=== PATIENT | female | born 1965 | race African-American/Black ===

== ENCOUNTER 2023-11-11 11:13 | Emergency (ER) | payer OTHER, SELFPAY ==
--- NOTE | ~2023-11-11 | CT_ITS ---
EXAMINATION: CT ABDOMEN AND PELVIS WITHOUT CONTRAST CLINICAL INFORMATION: Epigastric and right lower quadrant pain COMPARISON: None available. TECHNIQUE: Multidetector volumetric imaging was performed from the superior aspect of the liver through the pubic symphysis. Sagittal and coronal reformatted images were obtained on the technologist's workstation. This CT examination was performed using dose optimization techniques as appropriate, variously including the following: *Automated exposure control *Adjustment of mA and/or kV according to patient size (this includes techniques or standardized protocols for targeted exams where dose is matched to indication/reason for exam; i.e. extremities or head) *Use of iterative reconstruction technique DLP: 799 mGy-cm FINDINGS: LUNG BASES: Minimal patchy infiltrate or atelectasis is evident in the right posterior costophrenic sulcus. LIVER, GALLBLADDER, AND BILIARY TREE: The liver is normal in size, shape, and attenuation. No focal hepatic lesion or biliary ductal dilatation is present. The gallbladder is surgically absent. PANCREAS: Unremarkable. SPLEEN: Unremarkable. ADRENAL GLANDS: Unremarkable. KIDNEYS AND URETERS: The kidneys are normal in size, shape, and attenuation. No hydronephrosis, hydroureter, or calculi seen. No perinephric stranding. BLADDER: Unremarkable. GASTROINTESTINAL TRACT: The small and large bowel are unremarkable. The appendix is unremarkable. ABDOMINAL WALL: No significant hernia is appreciated. LYMPH NODES: Normal. VASCULAR: Unremarkable. PELVIC VISCERA: Unremarkable. OSSEOUS STRUCTURES: Unremarkable. CT/CT abdomen pelvis wo IV con IMPRESSION: No acute findings in the abdomen or pelvis. Fleischner guidelines were followed.
--- NOTE | ~2023-11-11 | XR_ITS ---
EXAMINATION: XR CHEST 2 VIEW CLINICAL INFORMATION: Chest pain COMPARISON: None TECHNIQUE: PA and lateral views of the chest obtained. FINDINGS: The lungs are clear. There are no pleural effusions. The cardiomediastinal silhouette is normal. XR/XR chest 2V IMPRESSION: No acute cardiopulmonary disease.
[2023-11-11 11:31] VITALS: BP 153/78; PULSE 74; RESP 16; TEMP 36.4; O2SAT 99; BMI 41.4
--- NOTE | 2023-11-11 11:32 | ED.GENADULT ---
HPI - General Adult General Chief complaint: Upper Respiratory Symptoms Stated complaint: chest pain fever coughing Time Seen by Provider: 11/11/23 12:38 Source: patient Mode of arrival: ambulatory Limitations: no limitations History of Present Illness HPI narrative: 58 year old female with no significant pmhx presents to the ED today for evaluation of chest and abdominal pain x5 days. She reports an episode of acid reflux 5 days ago for which she took OTC omeprazole. After this episode, she began having worsening intermittent substernal chest pain. She has been taking omeprazole, Tylenol, ibuprofen without relief of symptoms. Additionally she endorses discomfort to her right lower quadrant, subjective fevers, and cough since onset of chest pain. Admits to one episode of coughing earlier today in which her sputum had a streak of blood. She denies any known medical conditions. She does not take medications on a daily basis. denies known sick contacts. Daughter at bedside states that she arrived to the [facility] from [facility] back in August (2 months ago). Patient denies known tick or insect bites. Denies chills, sore throat, sputum production, N/V, sob, dyspnea, LE pain/swelling. Related Data Previous Rx's Medication Instructions Recorded pantoprazole 20 mg tablet,delayed 20 mg PO DAILY 30 days #30 tabs 11/11/23 release (Protonix) Allergies Allergy/AdvReac Type Severity Reaction Status Date / Time No Known Allergies Allergy Verified 11/11/23 11:35 Review of Systems Review of Systems: Constitutional: No fever, chills, fatigue, night sweats, weight changes ENT/Mouth: No ear pain, hearing loss, nasal congestion, sinus pain, rhinorrhea, sore throat Eyes: No eye pain, swelling, redness, vision changes, discharge Cardio: No palpitations, LUND, orthopnea, peripheral edema, +chest pain Pulm: No SOB, +cough, No sputum, wheezing, dyspnea, hemoptysis GI: No nausea, vomiting, hematemesis, diarrhea, constipation, hematochezia, melena, +abdominal pain : No irregular bleeding, dysuria, frequency, urgency, hesitancy, hematuria, flank pain, urinary flow changes, urinary incontinence or retention MSK: No back pain, neck pain, joint pain, myalgias Skin: No lesions, rashes Neuro: No weakness, numbness, paresthesias, LOC, dizziness, headache Psych: No anxiety/panic, depression, SI/HI, AH/VH All other systems reviewed and are negative. [facility] Past Medical History Attestation statement: The following information was validated with the patient. Source: old records reviewed and nursing notes reviewed Social History Social History Advance Directives: No Advance Directives Information Provided: No Physical Exam ED Vital Signs: Vital Signs - 24 hr 11/11/23 11:31 Temperature 97.5 F Pulse Rate 74 Respiratory Rate 16 Blood Pressure 153/78 H Pulse Oximetry 99 Oxygen Delivery Method Room Air BMI result Body Mass Index 41.4 Hypertensive, vitals otherwise WNL. Const General: cooperative, healthy appearing, comfortable and no acute distress Orientation/consciousness: patient oriented x3 Limitations: no limitations HENMT Head: Yes normal to inspection, Yes No palpable skull fracture present, Yes normocephalic and Yes atraumatic Ears: hearing grossly normal bilaterally, external ears normal, TM's normal bilaterally, EAC's normal, mastoids normal and no periauricular adenopathy Eyes General: appearance normal, both eyes and all related structures Conjunctivae: conjunctivae normal Sclerae: sclerae normal Pupils: Equal, round and reactive pupils present Neck Neck: Yes normal visual inspection, Yes full ROM, Yes no lymphadenopathy and Yes no JVD Chest Chest palpation & inspection: normal inspection of the chest, normal palpation of entire chest wall, no crepitus and no tenderness Resp Effort & Inspection: normal respiratory effort and able to speak in complete sentences Auscultation: clear to auscultation bilaterally Cardio Rate: regular rate Rhythm: regular rhythm Peripheral pulses: Peripheral pulses 2+ throughout GI Other: + obese abdomen, soft, nondistended, tender to palpation of the epigastric region and right lower quadrant without rebound or guarding. Normoactive bowel sounds x4. No CVAT bilaterally. Inspection: Yes normal to inspection General: Yes no CVA tenderness Back/Spine/Pelvis Other: No midline spinous tenderness or step off deformity. No paraspinal muscle tenderness. Back: no CVA tenderness Skin General skin exam: no rashes or lesions noted Neuro General: patient oriented x3 and gait normal Cranial nerves: Yes Equal, round and reactive pupils present Extrem General: Yes normal to inspection, Yes capillary refill normal and Yes no calf tenderness Course Course Course Narrative: RME- 58 year old female presents for evaluation of cough, fevers, body aches and chest pain for the last 3 days. Plan for viral swabs and EKG Reevaluation(s) Reevaluation #1: 1300-- Patient tested negative for influenza, RSV, COVID. CXR unremarkable. EKG showing normal sinus rhythm with a rate of 68 beats per minute, QT 368, QTC 391, no acute ischemic changes or ST elevations. Lower suspicion for ACS however will obtain troponin. > tender to palpation over the epigastric region and RLQ > will obtain basic labs/ lipase and ct abd/pelvis to rule out intra-abdominal pathology. 1457-- CBC without leukocytosis or anemia. No left shift. Chemistry without acute electrolyte abnormality requiring intervention. Troponin undetectable. Heart score 1. Low suspicion for ACS. UA without infection or blood. CT abdomen/pelvis unremarkable. Ddimer 217 which is within the normal range. Given flight was 2 months ago and symptoms began this week, low suspicion for PE. Patient's symptoms may be consistent with GERD. Discussed all work up results with patient and patient's daughter. > will send Protonix to pharmacy to treat GERD. Referral has been provided to new PCP. Patient has remained stable throughout ED visit today. Discussed worrisome signs and symptoms and when to return to the ED. All questions answered at this time. Patient is agreeable with disposition and stable for discharge. Medications Administered Discontinued Medications Generic Name Dose Route Start Last Admin Trade Name Freq PRN Reason Stop Dose Admin Acetaminophen 650 mg 11/11/23 13:00 11/11/23 13:37 Acetaminophen 325 Mg Tablet PO 11/11/23 13:01 650 mg ONCE ONE Administration Medical Decision Making Medical Decision Making [facility] Narrative: 58 year old female with no significant pmhx presents to the ED today for evaluation of chest and abdominal pain x5 days. Vital signs stable. Patient is nontoxic appearing and in NAD. obese abdomen, soft, nondistended, tender to palpation of the epigastric region and right lower quadrant without rebound or guarding. Normoactive bowel sounds x4. No CVAT bilaterally. Differential includes viral syndrome, GERD, gastritis, ACS, arrhythmia Plan for viral swabs, ekg, labs, cxr, imaging. Differential Diagnosis Differential Diagnoses: The differential diagnosis associated with the presentation includes As above Admission/Observation Not indicated Lab Data [facility] Lab Attestation statement: I reviewed the patient's lab results. As above 11/11/23 13:10 11/11/23 13:10 Labs: Lab Results 11/11/23 11/11/23 11/11/23 Range/Units 11:43 13:10 13:16 WBC 8.0 (4.8-10.8) X10*3/uL RBC 4.67 (4.20-5.50) X10*6/uL Hgb 12.1 (12.0-16.0) g/dl Hct 38.1 (37.0-47.0) % MCV 81.6 (80.0-98.0) fL MCH 25.9 L (27.0-33.0) pg MCHC 31.8 (31.0-35.0) g/dl RDW 13.9 (11.0-16.0) % Plt Count 359 (160-400) X10*3/uL MPV 9.4 (9.4-12.3) fL Immature Gran % (Auto) 0.1 (0.0-0.4) % Neut % (Auto) 48.4 (45-73) % Lymph % (Auto) 40.9 H (20-40) % Wilcox % (Auto) 9.0 (2-11) % Eos % (Auto) 1.2 (0-4) % Baso % (Auto) 0.4 (0-2) % Lymph # (Auto) 3.3 (1.2-4.9) X10*3/uL Wilcox # (Auto) 0.7 (0.1-1.2) X10*3/uL Eos # (Auto) 0.1 (0.0-0.4) X10*3/uL Baso # (Auto) 0.0 (0.0-0.2) X10*3/uL Abs Immat Gran (auto) 0.01 (0.00-0.03) X10*3/uL Absolute Neuts (auto) 3.9 (2.0-8.3) x10*3/uL Absolute Nucleated RBC 0.000 (0.0-0.012) X10*3/uL Nucleated RBC % (auto) 0.0 (0.0-0.2) /100WBC PT 11.2 (11.1-13.3) SEC INR 0.9 (0.9-1.1) D-Dimer High Sensitivty 217 NG/ML Sodium 142 (135-145) mmol/L Potassium 4.5 (3.3-5.1) mmol/L Chloride 106 (96-108) mmol/L Carbon Dioxide 30 H (22-29) mmol/L Anion Gap 11 L (12-20) BUN 14 (9-16) mg/dL Creatinine 0.96 (0.5-1.4) mg/dL Estim Creat Clear Calc 73.4 Estimated GFR > 60 Random Glucose 100 (60-115) mg/dL Calcium 9.6 (8.4-10.2) mg/dL Magnesium 1.9 (1.6-2.6) mg/dL Total Bilirubin 0.6 (0.0-1.0) mg/dL AST 18 (5-31) U/L ALT 20 (0-31) U/L Alkaline Phosphatase 82 (39-117) U/L Troponin I High Sens < 2.7 (<3.5-17.0) ng/L Total Protein 7.3 (6.5-8.0) g/dL Albumin 4.0 (3.5-5.0) g/dL Lipase 13 (8-78) U/L Urine Color Yellow Urine Appearance Clear Urine pH 8.0 (5.0-9.0) Ur Specific Clifton 1.010 (1.005-1.025) Urine Protein Negative (Neg-Trace) mg/dL Urine Glucose (UA) Negative (Negative) mg/dL Urine Ketones Negative (Negative) mg/dL Urine Blood Negative (Negative) Urine Nitrite Negative (Negative) Ur Leukocyte Esterase Negative (Negative) Influenza Type A (PCR) NEGATIVE (Negative) Influenza Type B (PCR) NEGATIVE (Negative) RSV RNA Qual (PCR) NEGATIVE (Negative) SARS-CoV-2 RNA (RT-PCR) NEGATIVE (Negative) Independent Interpretation I performed an independent interpretation of an: EKG, Plain X-Ray and CT Scan Interpretation: EKG showing normal sinus rhythm with a rate of 68 beats per minute, QT 368, no acute ischemic changes or ST elevations. I have personally reviewed chest x-ray and agree with radiologist's interpretation. I have personally reviewed ct scan and agree with radiologist's interpretation. Radiology Impression Discussion of test interpretation with radiology: I have reviewed the radiologist's reading. Radiologist Impression: XR chest 2V IMPRESSION: No acute cardiopulmonary disease. CT abdomen pelvis wo IV con IMPRESSION: No acute findings in the abdomen or pelvis. Fleischner guidelines were followed. Independent Historian Clinical information obtained from an independent historian. History obtained from or confirmed by: Other (daughter) Prescription Management I considered prescription management with: Other (protonix) Social Determinants Patient?s care significantly limited by Social Determinants of Health including: Other Social Determinant of Health Discharge Plan Discharge Clinical Impression: Epigastric pain Patient Disposition: Home, Self-Care Instructions: Gastroesophageal Reflux Disease (ED), Abdominal Pain (ED), Epigastric Pain (ED) Additional Instructions: Your labs today are reassuring. You tested negative for COVID, flu, RSV. Your urine does not show infection or blood. Your chest x-ray is normal. The CT scan of your abdomen is normal. You blood was sent to the lab to check for tick borne illness. You will be contacted with any positive results. You likely have acid reflux, better known as GERD. Protonix is a medication that has been sent to your pharmacy. Take this daily to help with your acid reflux. You have also been provided with a referral to a new primary care provider. You may call them to make an appointment. They will not call you. Return to the ED for new or worsening symptoms. In the case of an emergency call 911. Laboratwa ou yo braden a rasire. Ou te teste negatif thang COVID, shell plater, RSV. Pipi ou pa montre enfeksyon oswa menon. Radyografi pwatrin ou n?mal. Scan CT nan vant ou a n?mal. Yo te voye menon w nan laboratwa a thang tcheke si gen maladi tik. Ou pral kontakte w ak nenp?t rezilta pozitif. Ou gen anpil chans gen rflu pavel, fly malin k?m GERD. Protonix se yon medikaman ki te voye nan famasi ou. Pran sa a chak fozia thang paul ak rflu asid ou. Yo te ba w yon referans [place] yon nouvo founis? swen prensipal. Ou ka rele yo thang pran yon randevou. Yo pap rele w. Retounen nan ED thang nouvo sent?m oswa sent?joaquín berry pi grav. Silvana ka david villagomez rele 911. Prescriptions: New pantoprazole [Protonix] 20 mg tablet,delayed release (DR/EC) 20 mg PO DAILY 30 Days Qty: 30 0RF [place] [facility] [facility] [place] [facility] [place] [facility] [place] Group] [facility] [facility] [place] [facility]] Interventions: ED Discharge Assessment Last Done: 11/11/23 15:02 Discharge Date/Time: 11/11/23 15:03
--- NOTE | 2023-11-11 11:35 | ECG_ITS ---
Test Reason : CHEST PAIN Blood Pressure : / mmHG Vent. Rate : 068 BPM Atrial Rate : 068 BPM P-R Int : 142 ms QRS Dur : 072 ms QT Int : 368 ms P-R-T Axes : 052 020 072 degrees QTc Int : 391 ms Normal sinus rhythm Normal ECG No previous ECGs available Referred By: Tae Patino Electronically Signed By:DAVID CRUZ
--- NOTE | 2023-11-11 11:35 | PC.NURSE ---
per diem interpreter rachele melendez
[2023-11-11 12:32] LABS: Influenza A PCR NEGATIVE (Negative); Influenza B PCR NEGATIVE (Negative); Resp Syncy Virus RNA Qual PCR NEGATIVE (Negative); SARS COV2 PCR INHOUSE NEGATIVE (Negative)
[2023-11-11 13:20] LABS: MANUAL DIFF FLAG NO
[2023-11-11 13:21] LABS: Basophils Percent Auto 0.4 % (0-2); Eosinophils Absolute Auto 0.1 X10*3/uL (0.0-0.4); Eosinophils Percent Auto 1.2 % (0-4); Hematocrit 38.1 % (37.0-47.0); Hemoglobin 12.1 g/dl (12.0-16.0); Imm Gran Abs Auto 0.01 X10*3/uL (0.00-0.03); Imm Gran Pct Auto 0.1 % (0.0-0.4); Lymphocytes Absolute Auto 3.3 X10*3/uL (1.2-4.9); Lymphocytes Percent Auto 40.9 % (20-40); Mean Corpuscular HGB Conc 31.8 g/dl (31.0-35.0); Mean Corpuscular Hemoglobin 25.9 pg (27.0-33.0); Mean Corpuscular Volume 81.6 fL (80.0-98.0); Mean Platelet Volume 9.4 fL (9.4-12.3); Monocytes Absolute Auto 0.7 X10*3/uL (0.1-1.2); Neutrophils Absolute Auto 3.9 x10*3/uL (2.0-8.3); Neutrophils Percent Auto 48.4 % (45-73); Platelet Count 359 X10*3/uL (160-400); Red Blood Count 4.67 X10*6/uL (4.20-5.50); Red Cell Distribution Width 13.9 % (11.0-16.0)
[2023-11-11 13:23] LABS: Appearance Urine Clear; Color Urine Yellow; Glucose Urine UA Negative (Negative); Leukocyte Esterase Urine Negative (Negative); Nitrite Urine Negative (Negative); Urine Blood Negative (Negative); Urine Ketones Negative (Negative); Urine Protein Negative (Neg-Trace)
[2023-11-11 13:29] LABS: INTERNATIONAL NORM RATIO 0.9 (0.9-1.1); Prothrombin Time 11.2 SEC (11.1-13.3)
[2023-11-11] MEDS: Acetaminophen 325 MG TABLET 650 MG PO (13:37)
[2023-11-11 13:55] LABS: Alanine Aminotransferase 20 U/L (0-31); Alkaline Phosphatase 82 U/L (39-117); Anion Gap 11 (12-20); Aspartate Amino Transferase 18 U/L (5-31); Bilirubin Total 0.6 mg/dL (0.0-1.0); Blood Urea Nitrogen 14 mg/dL (9-16); Calcium 9.6 mg/dL (8.4-10.2); Carbon Dioxide 30 mmol/L (22-29); Chloride 106 mmol/L (96-108); Creatinine Clr Calc Pharmacy 73.4; Estimated Glomerular Filt Rate > 60; Glucose Random 100 mg/dL (60-115); Lipase 13 U/L (8-78); Magnesium 1.9 mg/dL (1.6-2.6); Potassium 4.5 mmol/L (3.3-5.1); Sodium 142 mmol/L (135-145); Total Protein 7.3 g/dL (6.5-8.0)
[2023-11-11 14:03] LABS: Troponin-I High Sensitivity < 2.7 ng/L (<3.5-17.0)
[2023-11-11 14:38] LABS: D Dimer High Sensitivity 217 NG/ML
[2023-11-13 19:33] LABS: Lyme Abs Screen <0.90 index
[2023-11-14 10:44] LABS: A. Phagocytphilium DNA,RT-PCR NOT DETECTED (NOT DETECTED); Babesia Microti DNA, RT-PCR NOT DETECTED (NOT DETECTED); Borrelia Miyamotoi,DNA RT-PCR NOT DETECTED (NOT DETECTED); E.Chaffeensis DNA RT-PCR NOT DETECTED (NOT DETECTED); Lyme(Borrelia ssp)DNA RT-PCR NOT DETECTED (NOT DETECTED)
== END 2023-11-11 15:03 | disposition home or self-care (01) ==
PROVIDERS: Physician Assistant; Physician Assistant Medical; Emergency Provider Emergency Medicine Emergency Medical Services
DX: R10.13 Epigastric pain (principal); R10.31 Right lower quadrant pain; R07.9 Chest pain, unspecified; R05.9 Cough, unspecified; R50.9 Fever, unspecified; Z11.52 Encounter for screening for COVID-19; Z20.828 Contact with and (suspected) exposure to other viral communicable diseases
CPT/HCPCS: 0241U; 36415; 71046; 74176; 80053; 81003; 83690; 83735; 84484; 85025; 85379; 85610; 86617; 86618; 87468; 87469; 87478; 87484; 87798; 93005; 99284

== ENCOUNTER → 2023-11-11 11:35 | Outpatient (BNV) | payer OTHER, SELFPAY | PROVIDERS: Emergency Provider Emergency Medicine Emergency Medical Services; Visit Provider Internal Medicine | DX: R07.9 Chest pain, unspecified (principal) | CPT/HCPCS: 93010 ==